=== PATIENT | female | born 1940 | race Caucasian/White ===

== ENCOUNTER → 2016-08-21 | Outpatient (CLI) | payer MEDICARE, BC ==
--- NOTE | ~2016-08-21 | BD1 ---
[facility] A Service of [facility] & [facility] RADIOLOGY TEXT RESULTS PATIENT: VY YEH LOCATION: SRAD : 38 UNIT #: [id number] AGE: [address]: Ian Herrera MD SEX: F ORDER DR: [id number] [address] [address] [id number] O MR#: [id number] Acc #: [id number] NAME: VY YEH : 1940 SEX: F STUDY DATE/TIME: 08/21/2016 9:25 UNIT: SRAD ROOM: STUDY DESCRIPTION: Dexa Bone Dens 1+ Site Attending Physician: Ian Herrera M.D. Referring Physician: Ian Herrera M.D. Ordering Physician: Ian Herrera M.D. Primary Care Physician: Ara Herrera M.D. MEDICAL IMAGING REPORT This report is preliminary unless electronic signature is present. EXAM DEXA scan 08/21/2016 HISTORY Status post menopause with no hormone replacement therapy. Osteopenia. FINDINGS Bone mineral density in the lumbar spine from L1-L4 is 0.947 g/cm2 which is 1.9 standard deviations below the mean when compared to the young adult reference population which is characteristic of osteopenia. This is 0.3 standard deviations above the mean when compared to the age-matched population. Bone mineral density in the left femoral neck was 0.566 g/cm2 which is 3.4 standard deviations below the mean when compared to the young adult reference population which is characteristic of osteoporosis. This is 1.1 standard deviations below the mean when compared to the age-matched population. Bone mineral density in the right femoral neck was 0.563 g/cm2 which is 3.4 standard deviations below the mean when compared to the young adult reference population which is characteristic of osteoporosis. This is 1.1 standard deviations below the mean when compared to the age-matched population. IMPRESSION Bone mineral density in the lumbar spine characteristic of osteopenia and within the hips bilaterally characteristic of osteoporosis. Dictated by... Marcell Logan M.D. THIS IS AN ELECTRONICALLY VERIFIED REPORT Marcell Logan M.D. at 08/22/2016 8:07 AM KRT/to [facility]. [facility] A Service of [facility] RADIOLOGY TEXT RESULTS PATIENT: VY YEH LOCATION: SRAD : 38 UNIT #: [id number] AGE: [address]: Ian Herrera MD SEX: F ORDER DR: TD: 08/21/2016 13:42 JOB #: [id number] MEDICAL IMAGING REPORT
== END | disposition home or self-care (01) ==
LOC: SRAD 09:10
DX: M81.0 Age-related osteoporosis without current pathological fracture (principal)
CPT/HCPCS: 77080